=== PATIENT | male | born 1970 | race Caucasian/White ===

== ENCOUNTER → 2017-06-11 | Outpatient (CLI) | payer OTHER ==
--- NOTE | 2017-06-11 09:54 | RAD ---
Foot x-rays Indication: Right foot injury 10 days ago. Third metatarsal pain Technique: 3 views of the right foot Comparison: None Findings: There is complete nondisplaced fracture through the distal metaphysis of the third metatarsal with no extension into the articular surface. 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 Mild arthritis of the mid foot. Impression: Nondisplaced complete fracture through the distal metaphysis of the third metatarsal with no extension to the articular surface.
== END | disposition home or self-care (01) ==
LOC: DXRADRC 08:52
PROVIDERS: ATTEND Family Medicine
DX: S92.334A Nondisplaced fracture of third metatarsal bone, right foot, initial encounter for closed fracture (principal); X58.XXXA Exposure to other specified factors, initial encounter; Y93.02 Activity, running; Y92.89 Other specified places as the place of occurrence of the external cause; Y99.8 Other external cause status
CPT/HCPCS: 73630

== ENCOUNTER → 2017-09-05 | Outpatient (CLI) | payer OTHER ==
--- NOTE | 2017-09-05 10:12 | RAD ---
Renal sonography History: Chronic kidney disease. Comparison: None at this facility. Findings: The longitudinal and AP and transverse dimensions of the right kidney are 8.3 cm and 4.7 cm and 5.3 cm respectively. The longitudinal AP and transverse dimensions of the left kidney are 10.6 cm and 5.5 cm and 5.2 cm respectively. Small bilateral renal cysts are seen. The cyst on the right side is located in the upper pole and measures 9 mm. The cyst on the left side is within the upper pole and measures 11 mm. No hydronephrosis or perinephric fluid collection is seen on either side. The thickness of the renal cortex on the right side measures 10 mm. The thickness of the renal cortex on the left side measures 8 mm. The urinary bladder is distended. Urinary bladder wall is smooth and no intraluminal echodensities are seen. Bilateral ureteral jets are evident. IMPRESSION: No hydronephrosis. Mild asymmetric right renal atrophy.
== END | disposition home or self-care (01) ==
LOC: US 08:46
PROVIDERS: ATTEND Internal Medicine Nephrology
DX: N18.3 Chronic kidney disease, stage 3 (moderate) (principal); N28.1 Cyst of kidney, acquired; N26.1 Atrophy of kidney (terminal); N32.89 Other specified disorders of bladder; F17.200 Nicotine dependence, unspecified, uncomplicated
CPT/HCPCS: 76770

== ENCOUNTER → 2020-11-30 | Outpatient (CLI) | payer OTHER ==
--- NOTE | 2020-11-30 10:03 | RAD ---
US RENAL DUPLEX History: Hypertension, chronic kidney disease. Comparison: Renal ultrasound 09/05/2017 Technique: Sonographic examination of the kidneys and bladder with renal artery Doppler evaluation. Findings: Right kidney: 6.9 cm in length. Atrophic and echogenic. No hydronephrosis or focal mass. Right renal artery peak systolic velocity measures 105 cm/s. Normal renal arterial waveforms. Left kidney: 9.4 cm in length. No hydronephrosis. A 1.7 cm left interpolar renal cyst is identified. Left renal artery peak systolic velocity measures 137 cm/s. Normal left renal artery waveforms. Bladder: No distal ureterectasis. No focal wall abnormality. Prevoid volume 37 ml. Aorta/IVC: Mild aortic plaque identified. Unremarkable IVC. Other: No ascites. Impression: 1. Small echogenic right kidney consistent with medical renal disease. No hydronephrosis. 2. No evidence of significant renal artery stenosis bilaterally. Electronically signed by: Ash Ellis MD (11/30/2020 10:01 AM) [facility]
== END ==
LOC: US 07:45
PROVIDERS: ATTEND Internal Medicine Nephrology
DX: N18.4 Chronic kidney disease, stage 4 (severe) (principal); I70.0 Atherosclerosis of aorta; I10 Essential (primary) hypertension
CPT/HCPCS: 76770